=== PATIENT | female | born 1970 | race Caucasian/White ===

== ENCOUNTER 2024-04-16 00:06 | Emergency (ER) | payer OTHER, SELFPAY ==
--- NOTE | ~2024-04-16 | CT_ITS ---
Non-contrast Head CT History: Headache Technique: Axial non-contrast imaging of the brain was performed. Dose reduction technique was used on this scan by utilizing automated exposure control and iterative reconstruction technique. The dose -length product (DLP) was 605.33 mGy-cm. Findings: There is no evidence of intracranial hemorrhage, mass lesion, or acute infarct. Brain par enchyma appears normal. The ventricles and subarachnoid spaces are normal in size. The calvarium ap pears normal. The visualized paranasal sinuses and mastoid air cells are clear. Impression: No significant abnormality seen. Reviewed, dictated and finalized at location . Impression: No significant abnormality seen.
[2024-04-16 00:09] VITALS: BP 162/82; PULSE 85; RESP 20; TEMP 36.4; O2SAT 100
[2024-04-16 02:10] VITALS: BP 144/71; PULSE 87; RESP 20; O2SAT 97
[2024-04-16] MEDS: PROCHLORPERAZINE EDISYLATE 10 MG/2 ML VIAL IV PUSH (02:41)
[2024-04-16] MEDS: SODIUM CHLORIDE 0.9% IV 1,000 ML 999 ML IV CONT (02:41)
[2024-04-16] MEDS: KETOROLAC 15 MG/ML VIAL (*BKC) IV PUSH (02:42)
[2024-04-16] MEDS: diphenhydrAMINE HCl INJ 50 MG/ML VIAL IV PUSH (02:42)
[2024-04-16 02:45] LABS: Basophils Percent Auto 0.3 % (0.2-1.2); Eosinophils Absolute Auto 0.1 K/mm3 (0-0.3); Eosinophils Percent Auto 0.7 % (0-4.4); Hematocrit 42.3 % (37.0-47.0); Hemoglobin 14.4 g/dL (12.0-15.0); Immature Granulocyte Absolute 0.03 K/mm3 (0.00-0.031); Immature Granulocyte Percent A 0.3 % (0-0.5); Lymphocytes Absolute Auto 4.36 K/mm3 (0.9-3.2); Lymphocytes Percent Auto 37.2 % (18.3-44.2); Mean Corpuscular Hemoglobin 30.1 pg (26-34); Mean Corpuscular Volume 88.3 fl (80-100); Mean Platelet Volume 10.1 fl (7.4-10.4); Monocytes Absolute Auto 0.7 K/mm3 (0.1-0.6); Monocytes Percent Auto 6.1 % (2.6-8.5); Neutrophils Absolute Auto 6.5 K/mm3 (1.3-6.7); Neutrophils Percent Auto 55.4 % (45.5-73.1); Platelet Count Result 303 k/mm3 (150-375); Red Blood Count 4.79 M/mm3 (4.2-5.4); Red Cell Distribution Width 14.3 % (11.5-14.5); White Blood Count 11.7 K/mm3 (4.5-10.0)
[2024-04-16 03:10] LABS: Alanine Aminotransferase 18 U/L (6-35); Alkaline Phosphatase 93 U/L (38-126); Anion Gap 8 mmol/L (4-12); Aspartate Amino Transferase 22 U/L (14-36); Bilirubin,Total 0.3 mg/dL (0.2-1.3); Blood Urea Nitrogen 14 mg/dL (7-17); Calcium 8.7 mg/dL (8.4-10.2); Carbon Dioxide 26 mmol/L (22-30); Chloride 104 mmol/L (98-107); Estimated CRCL calculation 75 ml/min; Estimated Glomerular Filt Rate > 60; Glucose 100 mg/dL (65-110); Potassium 3.3 mmol/L (3.4-5.0); Sodium 138 mmol/L (137-145)
[2024-04-16 03:12] LABS: Anisocytosis 1+; Atypical Lymphocytes Present; Ovalocytes 1+; Platelet Estimate Adequate (Adequate); Schistocytes None Seen
--- NOTE | 2024-04-16 03:29 | ED.GENADULT ---
HPI - General Adult General Chief complaint: Headache Stated complaint: headache Time Seen by Provider: 04/16/24 02:11 History of Present Illness HPI narrative: Patient is a 53-year-old female who presents emergency department with chief complaint of left-sided headache and numbness to left side of her face. The patient reports this been ongoing for over a month reports that she has had shingles and reports that his feels similar to the shingles except worse. Patient reports no focal weakness in her arms or legs reports that there has been no acute change reports she has been seen in another emergency department and was told to follow-up with primary care reports he has not been able follow-up with a primary care provider Related Data Allergies Allergy/AdvReac Type Severity Reaction Status Date / Time Penicillins Allergy Mild Unknown Verified 07/10/22 10:24 strawberry Allergy Unknown Unknown Verified 07/10/22 10:24 Review of Systems Review of Systems: A 10 system review of systems was completed on the patient and is negative except for what is stated in the HPI. Nursing and ancillary documentation was reviewed. 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 HEAD: Normocephalic, atraumatic. EYES: PERRLA and EOMI. ENT: Nares clear, no rhinorrhea or epistaxis. Mucous membranes moist. NECK: Supple. CHEST: Clear to auscultation. No respiratory distress. HEART: Regular rate and rhythm. No murmur heard. Normal peripheral pulses. ABDOMEN: Soft, nontender, nondistended, normal active bowel sounds. EXTREMITIES: Normal range of motion. No edema. SKIN: Warm, dry, no rash. NEURO: No focal deficits. Alert and oriented x3. PSYCH: Normal mood and affect. Course Vital Signs Vital signs: Vital Signs Temperature 36.4 C 04/16/24 00:09 Pulse Rate 85 04/16/24 00:09 Respiratory Rate 20 04/16/24 00:09 Blood Pressure 162/82 H 04/16/24 00:09 Pulse Oximetry 100 04/16/24 00:09 Oxygen Delivery Room Air 04/16/24 00:09 Temperature 36.4 C 04/16/24 00:09 Pulse Rate 87 04/16/24 02:10 Respiratory Rate 20 04/16/24 02:10 Blood Pressure 144/71 H 04/16/24 02:10 Pulse Oximetry 97 04/16/24 02:10 Oxygen Delivery Room Air 04/16/24 00:09 Medical Decision Making Vital Signs Vital Signs: Vital Signs Temperature 36.4 C 04/16/24 00:09 Pulse Rate 85 04/16/24 00:09 Respiratory Rate 20 04/16/24 00:09 Blood Pressure 162/82 H 04/16/24 00:09 Pulse Oximetry 100 04/16/24 00:09 Oxygen Delivery Room Air 04/16/24 00:09 Temperature 36.4 C 04/16/24 00:09 Pulse Rate 87 04/16/24 02:10 Respiratory Rate 20 04/16/24 02:10 Blood Pressure 144/71 H 04/16/24 02:10 Pulse Oximetry 97 04/16/24 02:10 Oxygen Delivery Room Air 04/16/24 00:09 Lab Data 04/16/24 02:40 04/16/24 02:40 Labs: Lab Results 04/16/24 Range/Units 02:40 WBC 11.7 H (4.5-10.0) K/mm3 RBC 4.79 (4.2-5.4) M/mm3 Hgb 14.4 (12.0-15.0) g/dL Hct 42.3 (37.0-47.0) % MCV 88.3 (80-100) fl MCH 30.1 (26-34) pg MCHC 34.0 (32-36) g/dl RDW 14.3 (11.5-14.5) % Plt Count 303 (150-375) k/mm
[2024-04-16 03:53] VITALS: BP 152/34; PULSE 68; RESP 19; O2SAT 100
== END 2024-04-16 04:00 | disposition home or self-care (01) ==
PROVIDERS: Emergency Provider Emergency Medicine
DX: R51.9 Headache, unspecified (principal); F17.210 Nicotine dependence, cigarettes, uncomplicated
CPT/HCPCS: 36415; 70450; 80053; 85025; 96361; 96374; 96375; 99284; J0780; J1200; J1885; J7030

== ENCOUNTER 2024-08-20 14:22 | Outpatient (CLI) | payer OTHER, SELFPAY ==
--- NOTE | ~2024-08-20 | MM_ITS ---
EXAMINATION: MM screening [facility] BI w latesha HISTORY: Screening TECHNIQUE: Craniocaudal and mediolateral oblique 3-D tomosynthesis images were obtained and synthetic 2-D images were generated. CAD analysis was submitted and interpreted. COMPARISON: No prior mammogram is available for comparison at this institution. BREAST PARENCHYMAL COMPOSITION: Dense: The breasts are extremely dense, which lowers the sensitivity of mammography. FINDINGS: There is a cluster of indeterminate calcifications in the lower outer quadrant of the right breast, middle third. There is no mammographic evidence for malignancy in the left breast. IMPRESSION: 1. Clustered indeterminate right breast calcifications. 2. Magnification views are recommended. BI-RADS Category 0: Incomplete: Needs additional imaging evaluation. 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
== END 2024-08-20 14:23 | disposition home or self-care (01) ==
LOC: ANHIMG 14:25
PROVIDERS: PCP Emergency Medicine; Visit Provider Emergency Medicine
DX: Z12.31 Encounter for screening mammogram for malignant neoplasm of breast (principal); R92.8 Other abnormal and inconclusive findings on diagnostic imaging of breast
CPT/HCPCS: 77063; 77067

== ENCOUNTER 2024-08-22 07:32 | Emergency (ER) | payer OTHER, SELFPAY ==
[2024-08-22 07:56] VITALS: BP 132/68; PULSE 87; RESP 14; TEMP 36.6; O2SAT 100
--- NOTE | 2024-08-22 09:04 | ED_ITS ---
HPI - General Adult General Chief complaint: Headache Stated complaint: blurry vision, headache Time Seen by Provider: 08/22/24 08:29 History of Present Illness HPI narrative: Patient presenting here with concern that she may have internal shingles. Does not have any lesions currently but feels like she may pop some in a week. Related Data Allergies Allergy/AdvReac Type Severity Reaction Status Date / Time Penicillins Allergy Mild Unknown Verified 07/10/22 10:24 strawberry Allergy Unknown Unknown Verified 07/10/22 10:24 Review of Systems Review of Systems: All systems reviewed & are unremarkable except as noted in HPI and below [facility] Surgical History Surgical History History of Hx of tonsillectomy Family History Family History Mother Bowel cancer Mother Family history of malignant neoplasm Social History Social History Smoking packs per day: 1 Smoking cigarettes per day: 20.0 Smoking status: Current every day smoker Tobacco type: cigarettes Alcohol intake: current Substance use: never Living arrangements: with friend(s) Occupation/Education: occupation 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 EYES: EOMI, conjunctiva normal, PERRL ENT: Hearing grossly intact LUNGS: Nonlabored breathing. HEART: [Regular rate and rhythm] ABD: [Soft], [nontender to palpation] EXT: Normal range of motion SKIN: [No rashes or lesions.] NEURO: [Alert and oriented x 3. No gross focal sensory or strength deficits.] PSYCH: Normal affect Course Vital Signs Vital signs: Vital Signs Temperature 97.8 F 08/22/24 07:56 Pulse Rate 87 08/22/24 07:56 Respiratory Rate 14 08/22/24 07:56 Blood Pressure 132/68 08/22/24 07:56 Pulse Oximetry 100 08/22/24 07:56 Temperature 97.8 F 08/22/24 07:56 Pulse Rate 88 08/22/24 09:41 Respiratory Rate 14 08/22/24 09:41 Blood Pressure 144/86 H 08/22/24 09:41 Pulse Oximetry 98 08/22/24 09:41 Medical Decision Making MDM Narrative Medical decision making narrative: Patient presenting with concern that she may be starting to develop internal shingles i.e. that she may be starting to have the beginnings of a shingles outbreak/flare. Has no lesions currently, normal neurologic exam here. Will give prescription for prednisone and antiviral medications as that works for her flares and have her follow-up with her PCP. Patient agreeable to this plan. Vital Signs Vital Signs: Vital Signs Temperature 97.8 F 08/22/24 07:56 Pulse Rate 87 08/22/24 07:56 Respiratory Rate 14 08/22/24 07:56 Blood Pressure 132/68 08/22/24 07:56 Pulse Oximetry 100 08/22/24 07:56 Temperature 97.8 F 08/22/24 07:56 Pulse Rate 88 08/22/24 09:41 Respiratory Rate 14 08/22/24 09:41 Blood Pressure 144/86 H 08/22/24 09:41 Pulse Oximetry 98 08/22/24 09:41 Discharge Plan Discharge Clinical Impression: Trigeminal neuralgia Patient Disposition: Home, Self-Care Condition: Stable Instructions: Trigeminal Neuralgia (ED) Additional Instructions: Please follow up with your doctor and neurologist; you can always return for any further issues. Patient Language: [place] Prescriptions: New valacyclovir [Valtrex] 1 gram tablet 1,000 mg PO Q8H 10 Days Qty: 30 0RF prednisone 20 mg tablet 40 mg PO DAILY 5 Days Qty: 10 0RF No Action albuterol sulfate [Ventolin HFA] 90 mcg/actuation HFA aerosol inhaler 1 puff inhalation Q4H PRN (Reason: shortness of breath or wheezing) Qty: 8.5 0RF nicotine 21 mg/24 hr patch 24 hour 1 patch transdermal DAILY Qty: 45 0RF methylprednisolone [Medrol (Tomas)] 4 mg tablets,dose pack See Rx Instructions PO PER PKG DIR Qty: 21 0RF Rx Instructions: PO PER PKG DIR Follow-up/Referrals: Michoacano Su MD [Physician] - 2 Days Narendra James MD [Primary Care Provider] -
[2024-08-22 09:41] VITALS: BP 144/86; PULSE 88; RESP 14; O2SAT 98
== END 2024-08-22 09:42 | disposition home or self-care (01) ==
LOC: ANHED 09:02
PROVIDERS: Emergency Provider Emergency Medicine; PCP Emergency Medicine
DX: G50.0 Trigeminal neuralgia (principal)
CPT/HCPCS: 96372; 99283

== ENCOUNTER 2024-09-08 12:41 | Outpatient (CLI) | payer OTHER, SELFPAY ==
--- NOTE | ~2024-09-08 | MM_ITS ---
EXAMINATION: MM diagnostic [facility] RT w latesha HISTORY: Right breast calcifications TECHNIQUE: Additional spot magnification images of the right breast were performed and synthetic 2-D images were generated. CAD analysis was submitted and interpreted. COMPARISON: 08/20/2024 BREAST PARENCHYMAL COMPOSITION:Dense: The breasts are extremely dense, which lowers the sensitivity o f mammography. FINDINGS: Spot magnification views demonstrate a group of amorphous and somewhat speckled microcalcif ications at the outer, central aspect. These are probably benign. No associated mass lesion or distor tion seen. IMPRESSION: Probably benign amorphous and speckled grouped microcalcifications, as above. Six-month follow-up [facility] mography recommended to reassess. BI-RADS category 3, probably benign findings. 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 S ix-month follow-up mammography recommended to reassess. BI-RADS category 3, probably benign findings.
== END 2024-09-08 12:42 | disposition home or self-care (01) ==
LOC: ANHIMG 12:42
PROVIDERS: PCP Emergency Medicine; Visit Provider Emergency Medicine
DX: R92.8 Other abnormal and inconclusive findings on diagnostic imaging of breast (principal)
CPT/HCPCS: 77061; 77065; G0279

== ENCOUNTER 2024-11-18 07:20 | Emergency (ER) | payer OTHER, SELFPAY ==
[2024-11-18 07:25] VITALS: BP 134/67; PULSE 86; RESP 16; TEMP 36.5; O2SAT 100
--- NOTE | 2024-11-18 07:25 | ED_ITS ---
HPI - General Adult General Chief complaint: Unspecified Stated complaint: Facial pain Time Seen by Provider: 11/18/24 07:24 History of Present Illness HPI narrative: This is a 54-year-old female with history trigeminal neuralgia, shingles, chronic fatigue presenting for facial pain. She has been having sharp facial pain that is worse with light touch with face in the V2 distribution for at least 3 months. She is working neurologist and neurosurgeons to figure out cause for symptoms. She recently had an MRI of her brain that was consistent with trigeminal neuralgia. She has stopped taking her oxcarbamazepine but she says it was strong enough. She is not taking anything else for pain. The patient believes her symptoms are due to shingles and is requesting a course of anti-virals. Patient denies pain in the tip of her nose. She denies pain in her eye or with extraocular eye movements. Patient says her vision is occasionally blurry but that has been on- going 3 months. No difficulty swallowing, double vision dysarthria, loss of coordination or weakness to any extremity. Other symptoms include general fatigue and not feeling well which has been on/off for years. Related Data Allergies Allergy/AdvReac Type Severity Reaction Status Date / Time Penicillins Allergy Mild Unknown Verified 11/18/24 07:42 strawberry Allergy Unknown Unknown Verified 11/18/24 07:42 [facility] Surgical History Surgical History History of Hx of tonsillectomy Family History Family History Mother Bowel cancer Mother Family history of malignant neoplasm Social History Social History Smoking packs per day: 1 Smoking cigarettes per day: 20.0 Smoking status: Current every day smoker Tobacco type: cigarettes Alcohol intake: current Substance use: never Living arrangements: with friend(s) Occupation/Education: occupation 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 Head: atraumatic. No vesicular rashes on the TM EYES: EOMI, fluorescein stain showed no ulcerations or abrasions, NOSE: Atraumatic, no pain in the to the nose NECK: Trachea midline RESPIRATORY: No increased rate of breathing CARDIOVASCULAR: RRR, ABDOMINAL: Non-distended MUSCULOSKELETAl: No obvious deformities NEURO: Alert. Moving 4/4 extremities SKIN:: No vesicular rashes PSYCHIATRIC: Normal affect Medical Decision Making MDM Narrative Medical decision making narrative: -Course: 54-year-old female presenting with facial pain. She attributes his shingles although it is more consistent with trigeminal neuralgia. She has recently had an MRI that is consistent with trigeminal neuralgia. She has stopped taking her oxcarbazepine saying it doesn work. Physical exam here is unremarkable w/ no ocular ulcerations/Mukherjee sign. Symptoms appear to be ch ronic in nature. The goal of her visit is to obtain a course of antivirals which I do not think will help her but will be provided. Patient states that she has all of the pain medications at home. Patient be discharged follow-up primary care physician and neurologist for further management. -DDX includes but is not limited to: Trigeminal neuralgia, disseminated shingles, chronic fatigue syndrome, CVA, fibromyalgia, depression Discharge Plan Discharge Clinical Impression: Left-sided trigeminal neuralgia, Nonadherence to medication Patient Disposition: Home, Self-Care Condition: Stable Instructions: Antibiotic Form, Trigeminal Neuralgia (ED) Additional Instructions: You were seen in the emergency department for facial pain. I believe this is due to your trigeminal neuralgia. Your requested anti virals which will be provided although I am not sure if this will help your condition. You should resume your oxcarbazepine. It is important that you follow-up with your neurologist and primary care physician for further management. Please return to ED if you develop any new or worsening symptoms. Patient Language: Czech Prescriptions: New valacyclovir 1 gram tablet 1,000 mg PO Q8H Qty: 21 0RF No Action albuterol sulfate [Ventolin HFA] 90 mcg/actuation HFA aerosol inhaler 1 puff inhalation Q4H PRN (Reason: shortness of breath or wheezing) Qty: 8.5 0RF nicotine 21 mg/24 hr patch 24 hour 1 patch transdermal DAILY Qty: 45 0RF valacyclovir [Valtrex] 1 gram tablet 1,000 mg PO Q8H 10 Days Qty: 30 0RF prednisone 20 mg tablet 40 mg PO DAILY 5 Days Qty: 10 0RF methylprednisolone [Medrol (Tomas)] 4 mg tablets,dose pack See Rx Instructions PO PER PKG DIR Qty: 21 0RF Rx Instructions: PO PER PKG DIR Follow-up/Referrals: Narendra James MD [Primary Care Provider] - 1 Week (Trigeminal neuralgia )
--- OUTSIDE RECORDS SUMMARY | 2024-11-18 07:39 | XMS_ITS | Clinical Summary ---
Author Organization [facility] Debbie espinoza [facility] Address [address] [place] [address] Care Team Providers Care Shingle Inspector Name Role Phone Unavailable Primary Care Provider Unavailabl e Social History Tobacco Use Types Packs/Day Years Used Date Smoking Tobacco: Never Assessed Comments Unknown Sex and Gender Information Value Date Recorded Sex Assigned at Not on file Legal Sex Female 2:48 PM AUT[employer] Gender Identity Not on file Sexual Orientation Not on file Plan of Treatment Upcoming Encounters Date Type Department Care Team (Late st Contact Info) Description 12/02/2024 1:30 PM CDT Office Visit [facility] Oncology and Hematology - [address] [facility] [address] [place] [address] Wild Dey MD [address] [facility] [place] [address] Health Maintenance Due Date Last Done Comments DTAP/TDAP/TD VACCINES (1 - Tdap) 1989 HEPATITIS B VACCINES (1 of 3 - 19+ 3-dose series) 04/1989 CERVICAL CANCER SCREENING 2000 BREAST CANCER SCREENING 2010 COLORECTAL SCREENING 2015 Colorectal Cancer Screening 2015 FIT-DNA Q 3 years 2015 FIT/FOBT Q 1 year 2015 Flex Sig/CT Colonography Q 5 years 2015 ZOSTER VACCINE (1 of 2) 2020 INFLUENZA VACCINE (#1) 2024 Insurance MEDICAID [place]
--- OUTSIDE RECORDS SUMMARY | 2024-11-18 07:39 | XMS_ITS | Clinical Summary ---
Author Organization [facility] Address [address] [place] [id number] Care Team Providers Care Automobile Travel Club Counselor Name Role Phone None, Provider MD Primary Care Provider Unavaila ble Allergies Active Allergy Reactions Criticality Noted Date Comments Penicillins Unknown 11/28/2021 From childhood Strawberries Swelling 11/28/2021 Medications medroxyPROGESTE Lance (DEPO-PROVERA) 150 MG/ML injection ADMINISTER 1 ML IN THE MUSCLE EVERY 3 MONTHS 2 Active Social History Tobacco Use Types Packs/Day Years Used Date Smoking Tobacco: Every Day Cigarettes Smokeless Tobacco: Never Alcohol Use Standard Drinks/Week Comments Not Currently 0 (1 standard drink = 0.6 oz pur e alcohol) Comments Unknown Sex and Gender Information Value Date Recorded Sex Assigned at Not on file Legal Sex Female 1:40 AM CDT Gender Identity Not on file Sexual Orientation Not on file Last Filed Vital Signs Vital Sign Reading Time Taken Comments Blood Pressure 160/99 03/09/2024 12:27 AM CDT Pulse 81 03/09/2024 12:27 AM CDT Temperature 36.7 C (98.1 F) 03/09/2024 12:27 AM CDT Respiratory Rate 20 03/09/2024 12:27 AM CDT Oxygen Saturation 100% 03/09/2024 12:27 AM CDT Inhaled Oxygen Concentration - - Weight 56.7 kg (125 lb) 03/09/2024 12:27 AM CDT Height 167.6 cm (5' 6 ) 03/09/2024 12:27 AM CDT Body Mass Index 20.18 03/09/2024 12:27 AM CDT Plan of Treatment Health Maintenance Due Date Last Done Comments Cervical Cancer Screening Pa p Smear (Age 30 to 64) Every 3 Years 1970 Colorectal Cancer Screening Colonoscopy (10 Years) 1970 Annual Physical 1973 Pneumococcal Vaccine: Pediatrics (0 to 5 Years) and At-Risk Patients (6 to 64 Years) (1 of 2 - PCV) 1976 Hepatitis C 1988 DTaP, Tdap and Td Vaccines ( 1 - Tdap) 1989 Hepatitis B Vaccines (1 of 3 - 19+ 3-dose series) 1989 Cervical Cancer Screening Pa p with HPV Testing (Age 30 to 64) Every 5 Years 2000 Cervical Cancer Screening wi th HPV 2000 Mammogram Screening 2010 Zoster Vaccines (1 of 2) 2020 COVID-19 Vaccine (3 - 2023-2 5 season) 2024 12/04/2020, 11/11/2020 Influenza Adult (#1) 2024 Meningococcal B Vaccine Aged Out No l onger eligible based on patient's age to complete this topic Meningococcal Vaccine Aged Out No kumar raul eligible based on patient's age to complete this topic RSV Immunizations Under 20 Months Aged Out No longer eligible b ased on patient's age to complete this topic Insurance Care Teams Automobile Travel Club Counselor Relationship Specialty Start Date End Date None, Provider, PCP - General UNKNOWN PHYSICIAN SPECIALTY 06/24/22
--- OUTSIDE RECORDS SUMMARY | 2024-11-18 07:40 | XMS_ITS | Clinical Summary ---
Author Organization [facility] Address [address] [place] [address] Care Team Providers Care Meat Stuffer Name Role Phone Unknown, Provider Primary Care Provider Unavaila ble Source Comments [facility],non-owned Affiliates and Associated Physician Practices is amultiple site organization consisting of ambulatory clinics and hospital sitesin [place], [place], [place] and [place]. This disclosure is being madepursuant to the Care Everywhere program and may not contain all information available regarding this patient. Last updated 18.[facility] Allergies Active Allergy Reactions Criticality Noted Date Comments Penicillins Unknown 11/28/2021 From childhood Penicillium Notatum Anaphylaxis,Shortnes s of Breath,Swelling High 05/26/2024 [place] Swelling 11/28/2021 Medications * Be aware that medications may not be up to date on this document. Alwaysverify current medications with the patient. Medication Sig Dispensed Refills Start Date End Date Status valACYclovir (Valtrex) 1 GM tablet Take 1 (one) tablet by mouth once 08/22/2024 Active predniSONE (Deltasone) 20 MG tablet Take 2 (two) tablets by mouth once daily 08/22/2024 Active doxycycline hyclate (Vibramycin) 100 MG capsule Take 1 (one) capsule by mouth once daily 09/02/2024 Active verapamil (Isoptin) 40 MG tabletIndications:Ch ronic facial pain,Trigeminal neuralgia,Other complicated headache syndrome Take 1 (one) tablet by mouth 3 times daily 270 tablet 4 10/08/2024 Active butalbital-acetamino phen-caffeine (Fioricet) 50-300-40 MG capsuleIndications:O ther complicated headache syndrome Take 1 (one) capsule by mouth every 4 hours as needed for Headache 30 capsule 5 10/08/2024 Active OXcarbazepine (Trileptal) 150 MG tabletIndications:Tr igeminal neuralgia Take 1 (one) tablet by mouth 2 times daily 180 tablet 4 10/08/2024 Active Active Problems No known active problems Encounters Date Type Department Care Team Description 11/02/2024 4:01 PM THEOLOGY TEACHER - 11/02/2024 11:59 PM THEOLOGY TEACHER Hospital Encounter [facility] MRI [address] [place] [address] Joseph Correa APRN-CNP Discharge Disposition: Home or Self Care 11/02/2024 Travel 10/08/2024 9:00 AM THEOLOGY TEACHER Office Visit [facility] - Neurology [address] [place] [address] Joseph Correa APRN-CNP Trigeminal neuralgia (Primary Dx); Chronic facial pain; Vertigo; Postural imbalance; Other complicated headache syndrome; Pre-op evaluation 10/08/2024 Travel 09/11/2024 2:15 PM THEOLOGY TEACHER Office Visit [facility] - Otolaryngology [address] [place] [address] Jarred Givens MD Chronic facial pain (Primary Dx) 09/11/2024 Travel 09/09/2024 Travel from Last 3 Months Social History Tobacco Use Types Packs/Day Years Used Date Smoking Tobacco: Every Day Cigarettes Smokeless Tobacco: Never Tobacco Cessation:Ready to Q uit: Not Asked; Counseling Given: Not Answered Alcohol Use Standard Drinks/Week Comments Never 0 (1 standard drink = 0.6 oz pur e alcohol) Sex and Gender Information Value Date Recorded Sex Assigned at Not on file Gender Identity Not on file Sexual Orientation Not on file Last Filed Vital Signs Vital Sign Reading Time Taken Comments Blood Pressure 129/77 10/08/2024 8:46 AM THEOLOGY TEACHER Pulse 96 10/08/2024 8:46 AM THEOLOGY TEACHER Temperature - - Respiratory Rate - - Oxygen Saturation 97% 09/11/2024 3:07 PM THEOLOGY TEACHER Inhaled Oxygen Concentration - - Weight 62.1 kg (137 lb) 10/08/2024 8:46 AM THEOLOGY TEACHER Height 167.6 cm (5' 6 ) 09/11/2024 3:07 PM THEOLOGY TEACHER Body Mass Index 22.11 09/11/2024 3:07 PM THEOLOGY TEACHER Plan of Treatment Upcoming Encounters Date Type Department Care Team (Late st Contact Info) Description 01/05/2025 2:30 PM CDT Office Visit [facility] - Neurology [address] [place] [phone] Joseph Correa, CLINICAL REVIEW NURSE-SOUND TECHNICIAN SUPERVISOR [address] [place] [phone] Health Maintenance Due Date Last Done Comments COLOGUARD (AGES 45-75) - COL ON CA SCREENING 1970 COLON MONITORING 1970 COLONOSCOPY - COLON CA SCREENING 1970 CT COLONOGRAPHY - COLON CA SCREENING 1970 Colorectal Cancer Screening 1970 FIT - COLON CA SCREENING 1970 FLEX SIG - COLON CA SCREENING 1970 LIPID TESTING 1970 MAMMOGRAM 1970 PAP SMEAR 1970 HIV SCREENING 1985 HEPATITIS C SCREENING 07/13/1988 DTAP/TDAP/TD VACCINES (1 - Tdap) 1989 HEPATITIS B VACCINE (1 of 3 - 19+ 3-dose series) 1989 PNEUMOCOCCAL VACCINE 50+ (1 of 2 - PCV) 1989 ZOSTER VACCINE (1 of 2) 2020 COVID-19 VACCINE (1 - 2023-2 5 season) 2024 INFLUENZA VACCINE (#1) 2024 DEPRESSION SCREENING 09/10/2024 HIB VACCINE Aged Out No longer eligi ble based on patient's age to complete this topic HPV VACCINE Aged Out No longer eligi ble based on patient's age to complete this topic MENINGOCOCCAL (Group B) VACCINE Aged Out No longer eligible based on patient's age to complete this topic MENINGOCOCCAL VACCINE Aged Out No kumar raul eligible based on patient's age to complete this topic Procedures Procedure Name Priority Date/Time Associated Diagnosis Comments MRI BRAIN WWO CONTRAST Routine 11/02/2024 5:36 PM THEOLOGY TEACHER Chronic facial pain Trigeminal neuralgia Vertigo Postural imbalance Other complicated headache syndrome Pre-op evaluation from Last 3 Months Results * MRI Brain Wwo Contrast (11/02/2024 5:36 PM THEOLOGY TEACHER) Anatomical Region Laterality Modality Head Magnetic Resonan ce 11/02/2024 9:15 PM THEOLOGY TEACHER Impressions 11/04/2024 9:52 AM THEOLOGY TEACHER IMPRESSION: 1.There is a small vessel coursing along the dorsal aspect of the root exit zone of the left trigeminal nerve, (series 14, image 33). 2.Otherwise, no mass or abnormal enhancement along the course of the fifth, seventh, and 8th cranial nerves bilaterally. 3.Subtle low-lying cerebellar tonsils. If there is clinical concern, fundus examination could be obtained for further evaluation. > Interpreting Provider: Kymberly Daniel MD on 11/04/2024 9:52 AM Narrative 11/04/2024 9:52 AM THEOLOGY TEACHER PROCEDURE: MRI BRAIN WWO CONTRAST, DATE/TIME OF EXAM: 11/02/2024 5:38 PM, LOCATION [facility] INDICATION: R51.9: Chronic facial pain G89.29: Chronic facial pain G50.0: Trigeminal neuralgia R42: Vertigo R29.3: Postural imbalance G44.59: Other complicated headache syndrome Z01.818: Pre-op evaluation ADDITIONAL CLINICAL INFORMATION: Ordering Provider Reason For Exam: Severe trigeminal neuralgia; pre op eval for Microvascular decompression Technologist Note: MRI Brain with fiesta sequence- Pre op eval Thanks Additional: 54 year old female with history of Atypical facial pain. Sinus infection, seen ENT, received steroids nothing helping in resolving symptoms. Patient has Neuropathic pain of face followed by Shingles; left facial pain; burning sensation (Since 4 years). Patient has history of Significant headaches and Seizures she reports Seizures under control and had it when she was child. CONTRAST: GADOBUTROL 1 MMOL/ML IV SSM SO:6 mL EXAMINATION: Magnetic resonance imaging (MRI) of the brain without and with contrast TECHNIQUE: MRI of the brain was performed prior to and following the uneventful administration of 6 mL intravenous GADAVIST contrast according to a dedicated internal auditory canal (IAC) protocol. This included detailed coronal and axial imaging through the intracranial course of cranial nerves five through eight. COMPARISON: No prior study is available for comparison at the time of this dictation. FINDINGS: There is a small vessel coursing along the dorsal aspect of the root exit zone of the left trigeminal nerve, (series 14, image 33). Otherwise, the cerebellopontine angles and internal auditory canals appear normal. No enhancing lesions are identified along the course of the cranial nerve 7/8 complexes. The signal within the bony labyrinth appears normal on both sides. The mastoids appear clear. Susceptibility artifacts in the basal ganglia, the dentate nuclei, and to a lesser extent the red nuclei, is a nonspecific finding likely represent physiologic mineralization. No evidence of acute cerebral infarction is seen. There is subjective mild cerebral volume loss with associated ex vacuo ventricular dilatation. No mass effect or midline shift is seen. Minimal periventricular white matter FLAIR hyperintensity is a nonspecific finding. No enhancing lesions are identified. There could be subtle low-lying cerebellar tonsils reaching down to the level of the foramen magnum. The posterior fossa, brainstem, and craniocervical junction appear otherwise grossly unremarkable.. The tortuous left vertebral artery results in slight deformity of the anterior left aspect of the alec. The left optic nerve sheath measures up to 5.5 mm, likely within normal limits. The visualized portions of the orbits appear grossly unremarkable. There is moderate mucosal thickening in the left maxillary sinus. Reduced pneumatization of the sphenoid sinus. There is opacification of the dependent and posterior right mastoid air cells. Suspected trace fluid signal in the right mastoid air cells. The remaining mastoid air cells appear grossly clear. Normal flow voids are demonstrated in the carotid arteries and basilar artery. Procedure Note Kymberly Daniel MD - 11/04/2024 PROCEDURE: MRI BRAIN WWO CONTRAST, DATE/TIME OF EXAM: 11/02/2024 5:38PM, LOCATION [facility] INDICATION: R51.9: Chronic facial pain G89.29: Chronic facial pain G50.0: Trigeminal neuralgia R42: Vertigo R29.3: Postural imbalance G44.59: Other complicated headache syndrome Z01.818: Pre-op evaluation ADDITIONAL CLINICAL INFORMATION: Ordering Provider Reason For Exam: Severe trigeminal neuralgia; pre op eval for Microvascular decompression Technologist Note: MRI Brain with fiesta sequence- Pre op eval Thanks Additional: 54 year old female with history of Atypical facial pain. Sinus infection, seen ENT, received steroids nothing helping inresolving symptoms. Patient has Neuropathic pain of face followed by Shingles;left facial pain; burning sensation (Since 4 years). Patient has history of Significant headaches and Seizures she reports Seizures under controland had it when she was child. CONTRAST: GADOBUTROL 1 MMOL/ML IV SSM SO:6 mL EXAMINATION: Magnetic resonance imaging (MRI) of the brain without andwith contrast TECHNIQUE: MRI of the brain was performed prior to and following the uneventful administration of 6 mL intravenous GADAVIST contrastaccording to a dedicated internal auditory canal (IAC) protocol. This included detailed coronal and axial imaging through the intracranial course of cranial nerves five through eight. COMPARISON: No prior study is available for comparison at the time ofthis dictation. FINDINGS: There is a small vessel coursing along the dorsal aspect of the rootexit zone of the left trigeminal nerve, (series 14, image 33). Otherwise, the cerebellopontine angles and internal auditory canals appear normal. No enhancing lesions are identified along the course of the cranial nerve7/8 complexes. The signal within the bony labyrinth appears normal on both sides. The mastoids appear clear. Susceptibility artifacts in the basal ganglia, the dentate nuclei, and toa lesser extent the red nuclei, is a nonspecific finding likely represent physiologic mineralization. No evidence of acute cerebral infarction is seen. There is subjective mild cerebral volume loss with associated ex vacuo ventricular dilatation. No mass effect or midline shift is seen. Minimal periventricular white matter FLAIR hyperintensity is anonspecific finding. No enhancing lesions are identified. There could be subtle low-lying cerebellar tonsils reaching down to the level of the foramen magnum. The posterior fossa, brainstem, and craniocervical junctionappear otherwise grossly unremarkable.. The tortuous left vertebral arteryresults in slight deformity of the anterior left aspect of the alec. The left optic nerve sheath measures up to 5.5 mm, likely within normal limits. The visualized portions of the orbits appear grosslyunremarkable. There is moderate mucosal thickening in the left maxillary sinus.Reduced pneumatization of the sphenoid sinus. There is opacification of the dependent and posterior right mastoid air cells. Suspected trace fluid signal in the right mastoid air cells. The remaining mastoid air cells appear grossly clear. Normal flow voids are demonstrated in the carotid arteries and basilar artery. IMPRESSION: 1.There is a small vessel coursing along the dorsal aspect of the rootexit zone of the left trigeminal nerve, (series 14, image 33). 2.Otherwise, no mass or abnormal enhancement along the course of thefifth, seventh, and 8th cranial nerves bilaterally. 3.Subtle low-lying cerebellar tonsils. If there is clinical concern,fundus examination could be obtained for further evaluation. > Interpreting Provider: Kymberly Daniel MD on 11/04/2024 9:52 AM Joseph Correa CLINICAL REVIEW NURSE-SOUND TECHNICIAN SUPERVISOR MR ORDERABLES from Last 3 Months Care Teams Meat Stuffer Relationship Specialty Start Date End Date Unknown, Provider PCP - General 10/28/24
--- OUTSIDE RECORDS SUMMARY | 2024-11-18 07:40 | XMS_ITS | Patient Health Summary ---
Author Organization [facility] Address [address] [place] [address] Care Team Providers Care Photography Assistant Name Role Phone Unknown, Provider Primary Care Provider Unavaila ble Note from [facility],non-owned Affiliates and Associated Physician Practices is amultiple site organization consisting of ambulatory clinics and hospital sitesin [place], [place], [place] and [place]. This disclosure is being madepursuant to the Care Everywhere program and may not contain all information available regarding this patient. Last updated 18.[facility] Allergies * Penicillins(Unknown) * Penicillium Notatum(Anaphylaxis,Shortness of Breath,Swelling) -High Criticality * [place](Swelling) Medications * Be aware that medications may not be up to date on this document. Alwaysverify current medications with the patient. * valACYclovir (Valtrex) 1 GM tablet(Started 08/22/2024) Take 1 (one) tablet by mouth once * predniSONE (Deltasone) 20 MG tablet(Started 08/22/2024) Take 2 (two) tablets by mouth once daily * doxycycline hyclate (Vibramycin) 100 MG capsule(Started 09/02/2024) Take 1 (one) capsule by mouth once daily * verapamil (Isoptin) 40 MG tablet(Started 10/08/2024) Take 1 (one) tablet by mouth 3 times daily 4 refills by 10/08/2025 * ocyovcfezo-nifbjgzwtdpmw-hzgdhiku (Fioricet) 50-300-40 MG capsule(Started 10/08/2024) Take 1 (one) capsule by mouth every 4 hours as needed for Headache 5 refills by 04/06/2025 * OXcarbazepine (Trileptal) 150 MG tablet(Started 10/08/2024) Take 1 (one) tablet by mouth 2 times daily 4 refills by 10/08/2025 Active Problems No known active problems Social History Tobacco Use Types Packs/Day Years [...] Comments Blood Pressure 129/77 10/08/2024 8:46 AM GAS FLOW REGULATOR Pulse 96 10/08/2024 8:46 AM GAS FLOW REGULATOR Temperature - - Respiratory Rate - - Oxygen Saturation 97% 09/11/2024 3:07 PM GAS FLOW REGULATOR Inhaled Oxygen Concentration - - Weight 62.1 kg (137 lb) 10/08/2024 8:46 AM GAS FLOW REGULATOR Height 167.6 cm (5' 6 ) 09/11/2024 3:07 PM GAS FLOW REGULATOR Body Mass Index 22.11 09/11/2024 3:07 PM GAS FLOW REGULATOR Procedures * MRI BRAIN WWO CONTRAST(Performed 11/02/2024) Performed for Chronic facial pain, Trigeminal neuralgia, Vertigo, Postural imbalance, Other complicated headache syndrome, Pre-op evaluation Results * MRI Brain Wwo Contrast (11/02/2024 5:36 PM GAS FLOW REGULATOR) Anatomical Region Laterality Modality Head Magnetic Resonan ce 11/02/2024 9:15 PM GAS FLOW REGULATOR Impressions 11/04/2024 9:52 AM GAS FLOW REGULATOR IMPRESSION: 1.There is a small vessel coursing [...] 11/04/2024 9:52 AM Narrative 11/04/2024 9:52 AM GAS FLOW REGULATOR PROCEDURE: MRI BRAIN WWO CONTRAST, DATE/TIME OF EXAM: 11/02/2024 5:38 PM, LOCATION [facility] INDICATION: R51.9: Chronic facial pain G89.29: Chronic [...] CONTRAST, DATE/TIME OF EXAM: 11/02/2024 5:38PM, LOCATION [facility] INDICATION: R51.9: Chronic facial pain G89.29: Chronic [...] Kymberly Daniel MD on 11/04/2024 9:52 AM Teodorokanchanpavithra Jaramillojose VICE PRESIDENT OF ACADEMIC AFFAIRS-COLLECTIONS CLERK MR ORDERABLES Care Teams Photography Assistant Relationship Specialty Start Date End Date Unknown, Provider PCP - General 10/28/24
--- OUTSIDE RECORDS SUMMARY | 2024-11-18 07:40 | XMS_ITS | Referral Summary ---
Author Organization [facility] Address [address] [place] [address] Care Team Providers Care Cement Tile Maker Name Role Phone Unknown, Provider Primary Care Provider Unavaila ble Source Comments [facility],non-owned Affiliates and Associated Physician Practices is amultiple site organization consisting of ambulatory clinics and hospital sitesin [place], [place], [place] and [place]. This disclosure is being madepursuant to the Care Everywhere program and may not contain all information available regarding this patient. Last updated 18.[facility] Encounters Date Type Department Care Team Description 11/02/2024 Travel 11/02/2024 4:01 PM PRODUCT MANAGEMENT INTERN - 11/02/2024 11:59 PM PRODUCT MANAGEMENT INTERN Hospital Encounter [facility] MRI [address] [place] [address] Joseph Correa APRN-CNP Discharge Disposition: Home or Self Care 10/08/2024 Travel 10/08/2024 9:00 AM PRODUCT MANAGEMENT INTERN Office Visit [facility] - Neurology [address] [place] [address] Joseph Correa APRN-CNP Trigeminal neuralgia (Primary Dx); Chronic facial pain; Vertigo; Postural imbalance; Other complicated headache syndrome; Pre-op evaluation 09/11/2024 Travel 09/11/2024 2:15 PM PRODUCT MANAGEMENT INTERN Office Visit [facility] - Otolaryngology [address] [place] [phone] Jarred Givens MD Chronic facial pain (Primary Dx) 09/09/2024 Travel from Last 3 Months Allergies Active Allergy Reactions Criticality Noted Date Comments Penicillins Unknown 11/28/2021 From childhood Penicillium Notatum Anaphylaxis,Shortnes s of Breath,Swelling High 05/26/2024 [place] Swelling 11/28/2021 Medications * Be aware that [...] Active Active Problems No known active problems Social [...] Comments Blood Pressure 129/77 10/08/2024 8:46 AM PRODUCT MANAGEMENT INTERN Pulse 96 10/08/2024 8:46 AM PRODUCT MANAGEMENT INTERN Temperature - - Respiratory Rate - - Oxygen Saturation 97% 09/11/2024 3:07 PM PRODUCT MANAGEMENT INTERN Inhaled Oxygen Concentration - - Weight 62.1 kg (137 lb) 10/08/2024 8:46 AM PRODUCT MANAGEMENT INTERN Height 167.6 cm (5' 6 ) 09/11/2024 3:07 PM PRODUCT MANAGEMENT INTERN Body Mass Index 22.11 09/11/2024 3:07 PM PRODUCT MANAGEMENT INTERN Plan of Treatment Upcoming Encounters Date Type Department Care Team (Late st Contact Info) Description 01/05/2025 2:30 PM CDT Office Visit [facility] - Neurology [address] [place] [phone] Joseph Correa, PARA MACHINE OPERATOR-MECHANICAL PROJECT MANAGER [address] [place] [phone] Procedures Procedure Name Priority Date/Time Associated Diagnosis Comments MRI BRAIN WWO CONTRAST Routine 11/02/2024 5:36 PM PRODUCT MANAGEMENT INTERN Chronic facial pain Trigeminal neuralgia Vertigo Postural imbalance Other complicated headache syndrome Pre-op evaluation from Last 3 Months Results * MRI Brain Wwo Contrast (11/02/2024 5:36 PM PRODUCT MANAGEMENT INTERN) Anatomical Region Laterality Modality Head Magnetic Resonan ce 11/02/2024 9:15 PM PRODUCT MANAGEMENT INTERN Impressions 11/04/2024 9:52 AM PRODUCT MANAGEMENT INTERN IMPRESSION: 1.There is a small vessel coursing [...] 11/04/2024 9:52 AM Narrative 11/04/2024 9:52 AM PRODUCT MANAGEMENT INTERN PROCEDURE: MRI BRAIN WWO CONTRAST, DATE/TIME OF EXAM: 11/02/2024 5:38 PM, LOCATION [facility] INDICATION: R51.9: Chronic facial pain G89.29: Chronic [...] CONTRAST, DATE/TIME OF EXAM: 11/02/2024 5:38PM, LOCATION [facility] INDICATION: R51.9: Chronic facial pain G89.29: Chronic [...] MD on 11/04/2024 9:52 AM Joseph Correa PARA MACHINE OPERATOR-MECHANICAL PROJECT MANAGER MR ORDERABLES from Last 3 Months Care Teams Cement Tile Maker Relationship Specialty Start Date End Date Unknown, Provider PCP - General 10/28/24
== END 2024-11-18 09:08 | disposition home or self-care (01) ==
PROVIDERS: Emergency Provider Emergency Medicine; PCP Emergency Medicine
DX: G50.0 Trigeminal neuralgia (principal); F17.210 Nicotine dependence, cigarettes, uncomplicated; Z91.148 Patient's other noncompliance with medication regimen for other reason
CPT/HCPCS: 99283

== ENCOUNTER 2024-12-02 14:19 | Outpatient (CLI) | payer OTHER, SELFPAY ==
[2024-12-02 14:41] LABS: Basophils Percent Auto 0.3 % (0.2-1.2); Eosinophils Absolute Auto 0.1 K/mm3 (0-0.3); Eosinophils Percent Auto 0.6 % (0-4.4); Hematocrit 44.5 % (37.0-47.0); Hemoglobin 15.1 g/dL (12.0-15.0); Immature Granulocyte Absolute 0.03 K/mm3 (0.00-0.031); Immature Granulocyte Percent A 0.3 % (0-0.5); Lymphocytes Absolute Auto 3.53 K/mm3 (0.9-3.2); Lymphocytes Percent Auto 36.2 % (18.3-44.2); Mean Corpuscular HGB Conc 33.9 g/dl (32-36); Mean Corpuscular Hemoglobin 29.3 pg (26-34); Mean Corpuscular Volume 86.4 fl (80-100); Mean Platelet Volume 9.8 fl (7.4-10.4); Monocytes Absolute Auto 0.8 K/mm3 (0.1-0.6); Monocytes Percent Auto 7.9 % (2.6-8.5); Neutrophils Absolute Auto 5.3 K/mm3 (1.3-6.7); Neutrophils Percent Auto 54.7 % (45.5-73.1); Platelet Count Result 359 k/mm3 (150-375); Red Blood Count 5.15 M/mm3 (4.2-5.4); Red Cell Distribution Width 14.8 % (11.5-14.5); White Blood Count 9.8 K/mm3 (4.5-10.0)
[2024-12-02 16:31] LABS: Alanine Aminotransferase 22 U/L (6-35); Albumin Level 4.1 g/dL (3.5-5.1); Alkaline Phosphatase 86 U/L (38-126); Anion Gap 10 mmol/L (4-12); Aspartate Amino Transferase 20 U/L (14-36); Bilirubin,Total 0.2 mg/dL (0.2-1.3); Blood Urea Nitrogen 12 mg/dL (7-17); CRP 1.3 mg/dL (<1.0); Calcium 9.4 mg/dL (8.4-10.2); Carbon Dioxide 22 mmol/L (22-30); Chloride 106 mmol/L (98-107); Estimated Glomerular Filt Rate > 60; Glucose 101 mg/dL (65-110); Potassium 4.3 mmol/L (3.4-5.0); Sodium 138 mmol/L (137-145)
--- OUTSIDE RECORDS SUMMARY | 2024-12-02 16:46 | XMS_ITS | Encounter Summary ---
Author Organization [facility] DIALLO Hayes [facility] Address [address] [place] [address] Care Team Providers Care Show Host Name Role Phone Unavailable Primary Care Provider Unavailabl e Reason for Visit * Reason Comments Establish Care Encounter Details Date Type Department Care Team (Late st Contact Info) Description 12/02/2024 1:30 PM CDT Office Visit [facility] Oncology and Hematology - James [address] [facility] [address] [place] [address] Wild Dey MD [address] [facility] [address] [place] [address] Leukocytosis, unspecified type (Primary Dx) Social History Tobacco Use Types Packs/Day Years Used Date Smoking Tobacco: Never Smokeless Tobacco: Never Tobacco Cessation:Counseling Given: Not Answered Alcohol Use Standard Drinks/Week Comments Never 0 (1 standard drink = 0.6 oz pur e alcohol) Comments Unknown Sex and Gender Information Value Date Recorded Sex Assigned at Not on file Legal Sex Female 2:48 PM QUILTING SUPERVISOR Gender Identity Not on file Sexual Orientation Not on file documented as of this encounter Last Filed Vital Signs Vital Sign Reading Time Taken Comments Blood Pressure 120/79 12/02/2024 1:32 PM CDT Pulse 98 12/02/2024 1:32 PM CDT Temperature 36.3 C (97.4 F) 12/02/2024 1:32 PM CDT Respiratory Rate 16 12/02/2024 1:32 PM CDT Oxygen Saturation 98% 12/02/2024 1:32 PM CDT Inhaled Oxygen Concentration - - Weight 59 kg (130 lb) 12/02/2024 1:32 PM CDT Height 167.6 cm (5' 6 ) 12/02/2024 1:32 PM CDT Body Mass Index 20.98 12/02/2024 1:32 PM CDT documented in this encounter Progress Notes * Wild Dey MD - 12/02/2024 2:26 PM CDT Hematology-oncology consult Note Requesting Physician Narendra James MD Primary Care Physician No primary care provider on file. Problem list There is no problem list on file for this patient. Previous TREATMENT ? Measurable Disease ? Reason for Visit Lanette Dowling is a 54 y.o. female who was referred for consultation for leukocytosis and hyperhomocysteinemia. History of present illness This is a 54-year-old female with history of shingles started 3 years ago after receivingshingle vaccination. Currently she has been taking steroids and Valtrex off-and-on on 3-4 times a year for shingle related symptoms. She just finished steroid about a week ago. She also has a historyof GERD and takes omeprazole. Patient 2 daughters were diagnosed with MTHFR mutation and she got tested and came back positive for heterozygous state for MTHFR mutation. Her homocystine was found to be elevated at 12. She denies any previous history of thromboembolic events including stroke and heart attack. Denies any other new complaints. Past Medical History No past medical history on file. Recurrent shingles GERD MTHFR heterozygous state Surgical History Past Surgical History: Procedure Laterality Date HX SECTION 1991 HX TONSIL AND ADENOIDECTOMY 1977 Medications Current Outpatient Medications Medication Sig Dispense Refill omeprazole (PriLOSEC) 20 mg Capsule, Delayed Release(E.C.) Take 20 mg by mouth daily. methylPREDNISolone (MEDROL DOSPACK) 4 mg Tablets, Dose Pack Take 4 mg by mouth see administration instructions. folic acid (FOLVITE) 1 mg tablet Take 1 Tablet (1 mg) by mouth daily. 90 Tablet 2 valACYclovir (VALTREX) 1 gram tablet Take 1,000 mg by mouth every 8 hours. No current facility-administered medications for this visit. Allergies Allergies Allergen Reactions [place] Anaphylaxis Penicillins Unknown From childhood Immunizations: There is no immunization history on file for this patient. Family History Family History Problem Relation Name Age of Onset No Known Problems Father Colon Cancer Mother No Known Problems Child No Known Problems Child No Known Problems Child Social History Social History Tobacco Use Smoking status: Never Smokeless tobacco: Never Substance Use Topics Alcohol use: Never Review of Systems Constitutional: Patient did not mention fever; no night sweats; no anorexia; no weight loss; no fatique NEENT: Patient did not mention headache; no change in vision; no change in hearing; no sore throat;no dysphagia Respiratory: Patient did not mention shortness of breath; no pleuritic chest pain; no cough; no hemoptysis Cardiac: Patient did not mention cardiac-like chest pain; no palpitations; no orthopnea; no PND; noDOE Breasts: Patient did not mention tenderness; no masses GI: Patient did not mention abdominal pain; no nausea; no vomiting; no diarrhea; no hematochezia; no melena : Patient did not mention dysuria; no frequency; no hesitancy; no hematuria CLERK TYPIST: Musculosketetal: Patient did not mention bone pain; no arthralgia; no joint swelling; no myalgia; Skin: Patient did not mention pruritis; no rash; no petechiae; no ecchymoses Endocrine: Patient did not mention polydipsia; no polyuria; no unusual weight gain Neuro: Patient did not mention headache; no change in vision; no sensory changes; no muscle weakness; no confusion; no seizures Psych: Patient did not mention anxiety; no depression; Physical Exam Vitals: As per nursing note Constitutional: Well developed, well nourished, no acute distress, non-toxic appearance Teeth and gum. No signs of infection or swelling. Eyes: PERRL, conjunctiva normal HEENT: Atraumatic, external ears normal, nose normal, oropharynx moist, no pharyngeal exudates. no sinus tenderness Neck- normal range of motion, no tenderness, supple Respiratory: No respiratory distress, normal breath sounds, no rales, no wheezing Cardiovascular: Normal rate, normal rhythm, no murmurs, no gallops, no rubs GI: Soft, nondistended, normal bowel sounds, nontender, no splenomegaly, no hepatomegaly, no mass, no rebound, no guarding : No costovertebral angle tenderness Musculoskeletal: No edema, no tenderness, no deformities. Back- no tenderness Integument: Well hydrated, no rash, Digits and nails inspection normal Lymphatic: No lymphadenopathy noted Neurologic: Alert & oriented x 3, CN 2-12 normal, normal motor function, normal sensory function, no focal deficits noted Psychiatric: Speech and behavior appropriate ? labs No results found for this or any previous visit (from the past 24 hours). Labs from August 2024 showed WBC 13.8 hemoglobin 14.5 platelet 386,000 neutrophils 56% lymphocytes 36% MTHFR heterozygous state with homocystine level of 12 Pathology ? Imaging & Other Studies Performance Status? Assessment / Plan: ? Hypercoagulable state with MTHFR heterozygous state with elevated homocystine level. Patient got tested as 2 of her daughter were tested positive for MTHFR mutation as they were having difficulty getting . She denies any previous history of thromboembolic events. I reviewed the significanceof MTHFR mutation and hyperhomocysteinemia in detail. I will check vitamin B12 and folic acid level. She is taking vitamin B12 1000 mcg twice a day. I will reduce it to 1000 mcg once a day. I will also add folic acid 1 mg daily. I will discuss those labs with patient in 2 weeks. Leukocytosis. This is likely reactive secondary to shingles and steroid use. I will check C-reactive protein, sedimentation rate and flow cytometric analysis for leukemia. There is no evidence of lymphadenopathy on my examination. GERD. She will continue omeprazole. Recurrent shingles. She has been taking Valtrex and steroid on as-needed basis. She will follow-up with the neurologist. Thank you very much for allowing me to participate in Lanette Dowling's evaluation and management. Please feel free to contact if I can be of any further assistance in your patient???s care requiring hematology or oncology evaluation. Sincerely, ? ? Wild Dey M.D. cell TOBACCO COUNSELING She is not a tobacco/nicotine user. Wild Dey MD ,12/02/2024 2:26 PM ? Total time spent 60 minutes, two third of the total time spent counseling patient [id number]. CC:?Narendra James MD documented in this encounter Plan of Treatment Upcoming Encounters Date Type Department Care Team (Late st Contact Info) Description 12/17/2024 4:00 PM CDT Telephone Check Up [facility] Oncology and Hematology - James [facility] [address] [place] [address] Wild Dey MD [address] [facility] [address] [place] [address] Scheduled Orders Name Type Priority Associated Diagnoses Orde r Schedule CBC WITH DIFFERENTIAL Lab Stat Leukocytosis, unspecified type Expected: 12/02/2024, Expires: 12/02/2025 COMPREHENSIVE METABOLIC PANEL Lab Stat Leukocytosis, unspecified type Expected: 12/02/2024, Expires: 12/02/2025 C-REACTIVE PROTEIN Lab Routine Leukocytosis, unspecified type Expected: 12/02/2024, Expires: 12/02/2025 FLOW CYTOMETRY PANEL Lab Routine Leukocytosis, unspecified type Expected: 12/02/2024, Expires: 12/02/2025 SEDIMENTATION RATE Lab Routine Leukocytosis, unspecified type Expected: 12/02/2024, Expires: 12/02/2025 HOMOCYSTEINE Lab Routine Leukocytosis, unspecified type Expected: 12/02/2024, Expires: 12/02/2025 VITAMIN B12 AND FOLATE Lab Routine Leukocytosis, unspecified type Expected: 12/02/2024, Expires: 12/02/2025 documented as of this encounter Visit Diagnoses Diagnosis Leukocytosis, unspecified type- Primary documented in this encounter
--- OUTSIDE RECORDS SUMMARY | 2024-12-02 16:46 | XMS_ITS | Clinical Summary ---
Author Organization [facility] Debbie espinoza [facility] Address [address] [place] [address] [place] [address] Care Team Providers Care Packaging Materials Inspector Name Role Phone Unavailable Primary Care Provider Unavailabl e Allergies Active Allergy Reactions Criticality Noted Date Comments Penicillins Unknown 11/28/2021 From childhood [place] Anaphylaxis High 12/02/2024 Medications valACYclovir (VALTREX) 1 gram tablet Take 1,000 mg by mouth every 8 hours. Active omeprazole (PriLOSEC) 20 mg Capsule, Delayed Release(E.C.) Take 20 mg by mouth daily. 5 Active methylPREDNISo lone (MEDROL DOSPACK) 4 mg Tablets, Dose Pack Take 4 mg by mouth see administration instructions. 5 Active folic acid (FOLVITE) 1 mg tablet Take 1 Tablet (1 mg) by mouth daily. 90 Tablet 2 5 Active Active Problems No known active problems Encounters Date Type Department Care Team Description 12/02/2024 1:30 PM CDT Office Visit [facility] Oncology and Hematology - James [address] [facility] [address] [place] [place] [address] Wild Dey MD Leukocytosis, unspecified type (Primary Dx) from Last 3 Months Family History Medical History Relation Name Comments No Known Problems Child 1 No Known Problems Child 2 No Known Problems Child 3 No Known Problems Father Colon Cancer Mother Relation Name Status Comments Child 1 Alive Child 2 Alive Child 3 Alive Father Alive Mother Alive Social History Tobacco Use Types Packs/Day Years Used Date Smoking Tobacco: Never Smokeless Tobacco: Never Tobacco Cessation:Counseling Given: Not Answered Alcohol Use Standard Drinks/Week Comments Never 0 (1 standard drink = 0.6 oz pur e alcohol) Comments Unknown Sex and Gender Information Value Date Recorded Sex Assigned at Not on file Legal Sex Female 2:48 PM DIRECTOR LEARNING SERVICES Gender Identity Not on file Sexual Orientation [...] Mass Index 20.98 12/02/2024 1:32 PM CDT Plan of Treatment Upcoming Encounters Date Type Department Care Team (Late st Contact Info) Description 12/17/2024 4:00 PM CDT Telephone Check Up [facility] Oncology and Hematology [facility] [address] [facility] [address] [place] [address] Wild Dey MD [address] [facility] [address] [place] [address] Health Maintenance Due Date Last Done Comments DTAP/TDAP/TD VACCINES (1 - Tdap) 1989 HEPATITIS B VACCINES (1 of 3 - 19+ 3-dose series) 04/1989 Preventative Visit-Managed Medicaid 1989 PAP SMEAR 1991 CERVICAL CANCER SCREENING 2000 HPV/Cotest 2000 PAP SMEAR 2000 BREAST CANCER SCREENING 2010 COLORECTAL SCREENING 2015 Colorectal Cancer Screening 2015 FIT-DNA Q 3 years 2015 FIT/FOBT Q 1 year 2015 Flex Sig/CT Colonography Q 5 years 2015 ZOSTER VACCINE (1 of 2) 2020 INFLUENZA VACCINE (#1) 2024 Insurance [place]ICAID [place]
--- OUTSIDE RECORDS SUMMARY | 2024-12-02 16:46 | XMS_ITS | Clinical Summary ---
Author Organization [facility] Address [address] [place] [address] Care Team Providers Care Medical Assistant Internal Medicine Name Role Phone Unknown, Provider Primary Care Provider Unavaila ble Source Comments [facility],non-owned Affiliates and Associated Physician Practices is amultiple site organization consisting of ambulatory clinics and hospital sitesin [place], [place], [place] and [place]. This disclosure is being madepursuant to the Care Everywhere program and may not contain all information available regarding this patient. Last updated 18.[facility] Allergies Active Allergy Reactions Criticality Noted Date Comments Penicillins Unknown 11/28/2021 From childhood Penicillium [place] Anaphylaxis,Shortnes s of Breath,Swelling High 05/26/2024 [place] Swelling 11/28/2021 Medications * Be aware that [...] times daily 180 tablet 4 10/08/2024 Active methylPREDNISolone (Medrol Dosepak) 4 MG tabletIndications:Tr igeminal neuralgia,Chronic facial pain Take 1 (one) tablet by mouth as directed Take as directed by mouth per package instructions. 21 tablet 11/24/2024 Active omeprazole (PriLOSEC) 20 MG capsuleIndications:T rigeminal neuralgia,Chronic facial pain Take 1 (one) capsule by mouth once daily 30 capsule 11/24/2024 Active Active Problems No known active problems Encounters Date Type Department Care Team Description 11/24/2024 Telephone [facility] - Neurology [address] [place] [phone] Joseph Correa APRN-CNP Medication Clarification (prednisone) 11/24/2024 Refill [facility] - Neurology [address] [place] [phone] Joseph Correa APRN-CNP Refill Request 11/24/2024 Orders Only [facility] - Neurology [address] [place] [phone] Joseph Correa APRN-CNP Trigeminal neuralgia ; Chronic facial pain 11/02/2024 4:01 PM TRAFFIC SIGNAL SUPERVISOR MAINTENANCE - 11/02/2024 11:59 PM [facility] Hospital Encounter [facility] MRI [address] [place] [address] Joseph Correa APRN-CNP Discharge Disposition: Home or Self Care 11/02/2024 Travel 10/08/2024 9:00 AM TRAFFIC SIGNAL SUPERVISOR MAINTENANCE Office Visit [facility] - Neurology [address] [place] [phone] Joseph Correa APRN-CNP Trigeminal neuralgia (Primary Dx); Chronic facial pain; Vertigo; Postural imbalance; Other complicated headache syndrome; Pre-op evaluation 10/08/2024 Travel 09/11/2024 2:15 PM TRAFFIC SIGNAL SUPERVISOR MAINTENANCE Office Visit [facility] - Otolaryngology [address] [place] [phone] Jarred Givens MD Chronic facial pain (Primary [...] Comments Blood Pressure 129/77 10/08/2024 8:46 AM TRAFFIC SIGNAL SUPERVISOR MAINTENANCE Pulse 96 10/08/2024 8:46 AM TRAFFIC SIGNAL SUPERVISOR MAINTENANCE Temperature - - Respiratory Rate - - Oxygen Saturation 97% 09/11/2024 3:07 PM TRAFFIC SIGNAL SUPERVISOR MAINTENANCE Inhaled Oxygen Concentration - - Weight 62.1 kg (137 lb) 10/08/2024 8:46 AM TRAFFIC SIGNAL SUPERVISOR MAINTENANCE Height 167.6 cm (5' 6 ) 09/11/2024 3:07 PM TRAFFIC SIGNAL SUPERVISOR MAINTENANCE Body Mass Index 22.11 09/11/2024 3:07 PM TRAFFIC SIGNAL SUPERVISOR MAINTENANCE Plan of Treatment Upcoming Encounters Date Type Department Care Team (Late st Contact Info) Description 01/05/2025 2:30 PM CDT Office Visit [facility] - Neurology [facility] [facility], [place] [address] Joseph Correa APRN-VINEYARD SUPERVISOR [address] [place] [address] [place] [phone] Health Maintenance Due Date Last Done Comments [...] to complete this topic MENINGOCOCCAL (Group B) VACC INE SHARED DECISION-MAKING Aged Out No longer eligibl e based on patient's age to complete this topic MENINGOCOCCAL GROUPS A/C/Y/W VACCINE Aged Out No longer eligible b ased on patient's age to complete this topic Procedures Procedure Name Priority Date/Time Associated Diagnosis Comments MRI BRAIN WWO CONTRAST Routine 11/02/2024 5:36 PM TRAFFIC SIGNAL SUPERVISOR MAINTENANCE Chronic facial pain Trigeminal neuralgia Vertigo Postural imbalance Other complicated headache syndrome Pre-op evaluation from Last 3 Months Results * MRI Brain Wwo Contrast (11/02/2024 5:36 PM TRAFFIC SIGNAL SUPERVISOR MAINTENANCE) Anatomical Region Laterality Modality Head Magnetic Resonan ce 11/02/2024 9:15 PM TRAFFIC SIGNAL SUPERVISOR MAINTENANCE Impressions 11/04/2024 9:52 AM TRAFFIC SIGNAL SUPERVISOR MAINTENANCE IMPRESSION: 1.There is a small vessel coursing [...] 11/04/2024 9:52 AM Narrative 11/04/2024 9:52 AM TRAFFIC SIGNAL SUPERVISOR MAINTENANCE PROCEDURE: MRI BRAIN WWO CONTRAST, DATE/TIME OF EXAM: 11/02/2024 5:38 PM, LOCATION [facility] INDICATION: R51.9: Chronic facial pain G89.29: Chronic [...] CONTRAST, DATE/TIME OF EXAM: 11/02/2024 5:38PM, LOCATION [facility] INDICATION: R51.9: Chronic facial pain G89.29: Chronic [...] Daniel MD on 11/04/2024 9:52 AM Joseph [facility] MR ORDERABLES from Last 3 Months Care Teams Medical Assistant Internal Medicine Relationship Specialty Start Date End Date Unknown, Provider PCP - General 10/28/24
[2024-12-02 16:49] LABS: Erythrocyte Sedimentation Rate 11 mm/hr (0-20)
[2024-12-02 17:35] LABS: Folic Acid 16.5 ng/mL (2.76->20)
[2024-12-04 12:54] LABS: Homocysteine 7.4 umol/L (<10.4)
== END 2024-12-02 14:20 | disposition home or self-care (01) ==
LOC: ANHLAB 14:20
PROVIDERS: PCP Emergency Medicine; Visit Provider Internal Medicine Hematology & Oncology
DX: D72.829 Elevated white blood cell count, unspecified (principal)
CPT/HCPCS: 36415; 80053; 82607; 82746; 83090; 85025; 85652; 86140; 88184

== ENCOUNTER 2025-06-22 13:21 | Outpatient (CLI) | payer OTHER, SELFPAY ==
[2025-06-22 13:37] LABS: Hematocrit 40.7 % (37.0-47.0); Hemoglobin 13.5 g/dL (12.0-15.0); Immature Granulocyte Percent A 0.4 % (0-0.5); Lymphocytes Absolute Auto 3.80 K/mm3 (0.9-3.2); Mean Corpuscular HGB Conc 33.2 g/dl (32-36); Mean Corpuscular Hemoglobin 28.7 pg (26-34); Mean Corpuscular Volume 86.6 fl (80-100); Nucleated Red Blood Cells Absolute Auto 0.000 K/mm3 (0.0-0.012); Nucleated Red Blood Cells Perc 0.0 % (0.0-0.2); Platelet Count Result 304 k/mm3 (150-375); Red Blood Count 4.70 M/mm3 (4.2-5.4); White Blood Count 10.3 K/mm3 (4.5-10.0)
--- OUTSIDE RECORDS SUMMARY | 2025-06-22 14:35 | XMS_ITS | Clinical Summary ---
Author Organization [facility] a[facility]is [facility] Address [address] [place] [address] [place] [address] Care Team Providers Care Pest Control Applicator Name Role Phone Unavailable Primary Care Provider Unavailabl e Allergies Active Allergy Reactions Criticality Noted Date Comments Penicillins Unknown 11/28/2021 From childhood [place] Anaphylaxis High 12/02/2024 Medications valACYclovir (VALTREX) 1 [...] mg) by mouth daily. 90 Tablet 2 Active Active Problems No known active problems Encounters Date Type Department Care Team Description 05/26/2025 External Device Data [facility] ABSTRACTION Provider, Abstract 04/14/2025 External Device Data [facility] ABSTRACTION Provider, Abstract 03/25/2025 External Device Data [place] ABSTRACTION Provider, Abstract 03/25/2025 External Device Data [place] ABSTRACTION Provider, Abstract 03/25/2025 External Device Data [place] ABSTRACTION Provider, Abstract from Last 3 Months Family History Medical [...] on file Legal Sex Female 2:48 PM MEDICAL LEADER Gender Identity Not on file Sexual Orientation [...] 1:32 PM CDT Height 167.6 cm (5' 6) 12/02/2024 1:32 PM CDT Body Mass Index 20.98 12/02/2024 1:32 PM CDT Plan of Treatment Upcoming Encounters Date Type Department Care Team (Late st Contact Info) Description 06/23/2025 10:15 AM CDT Office Visit [facility] Oncology and Hematology [place] [address] [place] [address] [facility] [address] [place] [address] Wild Dey MD [address] [facility] [address] [place] [address] Health Maintenance Due Date Last Done Comments DTAP/TDAP/TD VACCINES (1 - Tdap) 1989 HEPATITIS B VACCINES (1 of 3 - 19+ 3-dose series) 04/1989 Preventative Visit-Managed Medicaid 1989 HPV/Cotest (21-29) 1991 CERVICAL CANCER SCREENING 2000 HPV/Cotest (30-65) 2000 PAP SMEAR 2000 BREAST CANCER SCREENING 2010 COLORECTAL SCREENING 2015 Colorectal Cancer Screening 2015 FIT-DNA Q 3 years 2015 FIT/FOBT Q 1 year 2015 Flex Sig/CT Colonography Q 5 years 2015 ZOSTER VACCINE (1 of 2) 2020 INFLUENZA VACCINE (#1) 2025 Insurance [place] [employer]
--- OUTSIDE RECORDS SUMMARY | 2025-06-22 14:35 | XMS_ITS | Encounter Summary ---
Author Organization [facility] Address [address] [place] [address] Care Team Providers Care Cement Mixer Driver Name Role Phone Narendra James MD Primary Care Provider [phone] Narendra James MD Unavailable Encounter Details Date Type Department Care Team (Late Contact Info) Description 12/19/2024 Ophth Exam [facility] - Ophthalmology [address] [place] [phone] Fernanda Soni MD [address] [place] [address] Social History Tobacco Use Types Packs/Day Years Used Date Smoking Tobacco: Never Assessed Comments Unknown Sex and Gender Information Value Date Recorded Sex Assigned at Female 12/23/2024 3:32 PM CDT Legal Sex Female 5:48 AM FITTINGS FINISHER Gender Identity Female 12/23/2024 3:32 PM CDT Sexual Orientation Straight 12/23/2024 3: 32 PM CDT documented as of this encounter Functional Status documented as of this encounter Plan of Treatment Upcoming Encounters Date Type Department Care Team (Late Contact Info) Description 11/05/2025 1:30 PM FITTINGS FINISHER Office Visit [facility] - Neurology [address] [place] [phone] Joseph Correa APRN-CNP [address] [place] [address] [place] [phone] documented as of this encounter Visit Diagnoses Not on filedocumented in this encounter Care Teams Cement Mixer Driver Relationship Specialty Start Date End Date Narendra James MD [address] [facility] [address] [place] [address] PCP - General Family Medicine 12/19/24 Narendra James MD [address] [address] Family Medicine 12/19/24 documented as of this encounter
--- OUTSIDE RECORDS SUMMARY | 2025-06-22 14:35 | XMS_ITS | Clinical Summary ---
Author Organization [facility] Address [facility] [place] [address] Care Team Providers Care Blender/Braze Applicator Name Role Phone None, Provider MD Primary [...] Not Answered Alcohol Use Standard Drinks/Week Comments Not Currently 0 (1 standard drink = 0.6 oz pur e alcohol) Comments Unknown Sex and Gender Information Value Date Recorded Sex Assigned at Not on file Legal Sex Female 1:40 AM CDT Gender Identity Not on file Sexual Orientation Not on file Last Filed Vital Signs Vital Sign Reading Time Taken Comments Blood Pressure 150/86 01/27/2025 9:15 AM CDT Pulse 75 01/27/2025 9:15 AM CDT Temperature 36.7 C (98.1 F) 01/27/2025 6:57 AM CDT Respiratory Rate 21 01/27/2025 9:15 AM CDT Oxygen Saturation 98% 01/27/2025 9:15 AM CDT Inhaled Oxygen Concentration - - Weight 61.2 kg (135 lb) 01/27/2025 6:57 AM CDT Height 167.6 cm (5' 6) 01/27/2025 6:57 AM CDT Body Mass Index 21.79 01/27/2025 6:57 AM CDT Plan of Treatment Health Maintenance Due Date Last Done Comments Cervical Cancer Screening Pa p Smear (Age 30 to 64) Every 3 Years 1970 Colorectal Cancer Screening Colonoscopy (10 Years) 1970 Annual Physical 1973 Hepatitis C 1988 DTaP, Tdap and Td Vaccines ( 1 - Tdap) 1989 Hepatitis B Vaccines (1 of 3 - 19+ 3-dose series) 1989 Pneumococcal Vaccine: 50+ Years (1 of 2 - PCV) 1989 Cervical Cancer Screening Pa p with HPV Testing (Age 30 to 64) Every 5 Years 2000 Cervical Cancer Screening wi th HPV 2000 Mammogram Screening 2010 Zoster Vaccines (1 of 2) 2020 COVID-19 Vaccine (3 - 2024-2 6 season) 2025 12/04/2020, 11/11/2020 Influenza Adult (#1) 2025 Meningococcal B Vaccine Aged Out No l onger eligible based on patient's age to complete this topic Meningococcal Vaccine Aged Out No kumar raul eligible based on patient's age to complete this topic RSV Immunizations Under 20 Months Aged Out No longer eligible b ased on patient's age to complete this topic Insurance Care Teams Blender/Braze Applicator Relationship Specialty Start Date End Date None, Provider, MD PCP - General UNKNOWN PHYSICIAN SPECIALTY 12/23/24
--- OUTSIDE RECORDS SUMMARY | 2025-06-22 14:35 | XMS_ITS | Encounter Summary ---
Author Organization [facility] Address [address] [facility] [place] [address] Care Team Providers Care Record Pressman Name Role Phone Narendra James MD Primary Care Provider [phone] Narendra James MD Primary Care Provider [phone] Narendra James MD Unavailable Encounter Details Date Type Department Care Team (Late st Contact Info) Description 12/17/2024 Telephone [facility] - Infectious Disease [address] [place] [address], [place] [id number] Luis Laws MD [address] [place] [address] [place] [address] Social History Tobacco Use Types Packs/Day Years Used Date Smoking Tobacco: Every Day Cigarettes Smokeless Tobacco: Never Alcohol Use Standard Drinks/Week Comments Never 0 (1 standard drink = 0.6 oz pur e alcohol) Comments Unknown Sex and Gender Information Value Date Recorded Sex Assigned at Female 12/23/2024 3:32 PM CDT 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 Laws Reason for Call: Ms. Lanette Dowling has referral for ID under referral tab Diagnosis B02.9 (ICD-10-CM) - Shingles H57.10 (ICD-10-CM) - Pain in eye R51.9 (ICD-10-CM) - Headache Please review and get her schedule Patient Call Back Number: [phone] documented in this encounter Plan of Treatment Upcoming Encounters Date Type Department Care Team (Late st Contact Info) Description 11/05/2025 1:30 PM FILENET DEVELOPER Office Visit [facility] - Neurology [facility] [facility], [place] [address] Joseph Correa APRN-TELEVISION ANTENNA INSTALLER [address] [place] [address] [place] [address] documented as of this encounter Visit Diagnoses Not on filedocumented in this encounter Care Teams Record Pressman Relationship Specialty Start Date End Date Narendra James MD [address] [address] PCP - General Family Medicine 12/03/24 12/18/24 Narendra James MD [address] [place] [address] PCP - General Family Medicine 12/19/24 Narendra James MD [address] [address] Family Medicine 12/19/24 documented as of this encounter
--- OUTSIDE RECORDS SUMMARY | 2025-06-22 14:36 | XMS_ITS | Encounter Summary ---
Author Organization [facility] Address [address] [place] [address] Care Team Providers Care C Python Developer Name Role Phone Narendra James MD Primary Care Provider [phone] Narendra James MD Primary Care Provider [phone] Narendra James MD Unavailable Encounter Details Date Type Department Care Team (Late st Contact Info) Description 12/17/2024 Telephone [facility] - Neurology [address] [place] [address], [place] [address] Joseph Correa APRN-SALESPERSON [facility] [address] [place] [phone] Social History Tobacco Use Types Packs/Day Years Used Date Smoking Tobacco: Every Day Cigarettes Smokeless Tobacco: Never Alcohol Use Standard Drinks/Week Comments Never 0 (1 standard drink = 0.6 oz pur e alcohol) Comments Unknown Sex and Gender Information Value Date Recorded Sex Assigned at Female 12/23/2024 3:32 PM CDT 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 Patient Call Back Number: [phone] documented in this encounter Plan of Treatment Upcoming Encounters Date Type Department Care Team (Late st Contact Info) Description 11/05/2025 1:30 PM FUR CUTTING MACHINE OPERATOR Office Visit [facility] - Neurology [address] [facility], [place] [address] Joseph Correa, DATA MIGRATION LEAD-SALESPERSON [facility] [address] [place] [address] documented as of this encounter Visit Diagnoses Not on filedocumented in this encounter Care Teams C Python Developer Relationship Specialty Start Date End Date Narendra James MD [address] [address] PCP - General Family Medicine 12/03/24 12/18/24 Narendra James MD [address] [facility] [address] [place] [address] PCP - General Family Medicine 12/19/24 Narendra James MD [address] [facility] [address] [place] [address] Family Medicine 12/19/24 documented as of this encounter
--- OUTSIDE RECORDS SUMMARY | 2025-06-22 14:36 | XMS_ITS | Clinical Summary ---
Author Organization [facility] Address [address] [place] [address] Care Team Providers Care Inspector Casing Name Role Phone Narendra James MD Primary Care Provider [phone] Narendra James MD Unavailable Source Comments [facility],non-owned Affiliates and Associated Physician Practices is amultiple site organization consisting of ambulatory clinics and hospital sitesin [place], [place], [place] and [place]. This disclosure is being madepursuant to the Care Everywhere program and may not contain all information available regarding this patient. Last updated 18.[facility] Allergies Active Allergy Reactions Criticality Noted Date Comments Penicillins Anaphylaxis High 12/19/2024 Penicillins Unknown 11/28/2021 From childhood Penicillium Notatum Anaphylaxis,Shortnes s of Breath,Swelling High 05/26/2024 [place] Swelling 11/28/2021 [place] Anaphylaxis High 12/19/2024 Medications * Be aware that medications may not be up to date on this document. Alwaysverify current medications with the patient. doxycycline hyclate (Vibramycin) 100 MG capsule Take 1 (one) capsule by mouth once daily 4 Active indomethacin (Indocin) 25 MG capsuleIndicati ons:Trigeminal neuralgia Take 1 (one) capsule by mouth 2 times daily 180 capsule 4 5 Active omeprazole (PriLOSEC) 20 MG capsuleIndicati ons:Trigeminal neuralgia,Chron ic facial pain Take 1 (one) capsule by mouth once daily 90 capsule 3 5 Active medroxyPROGESTE Lance (Depo-Provera) 150 MG/ML prefilled syringe ADMINISTER 1 ML IN THE MUSCLE EVERY 3 MONTHS Active Active Problems No known active problems Encounters Date Type Department Care Team Description 05/07/2025 1:30 PM CDT Office Visit [facility] - Neurology [address] [place] [address], [facility] [place] [address] SunnyTeodoroanita, CONSULTING PROJECT DIRECTOR-TRAIN EXAMINER Trigeminal neuralgia (Primary Dx) 05/07/2025 Travel from Last 3 Months Immunizations Immunization Administration Dates Next Due Covid Pfizer primary monoval ent 12+ yr 0.3mL Purple cap 12/04/2020,11/11/2020 HEP A VACCINE, ADULT 12/01/2013 Social History Tobacco Use Types Packs/Day Years Used Date Smoking Tobacco: Every Day Cigarettes Smokeless Tobacco: Never Tobacco Cessation:Ready to Q uit: Not Asked; Counseling Given: Not Answered Alcohol Use Standard Drinks/Week Comments Never 0 (1 standard drink = 0.6 oz pur e alcohol) PHQ-2 Answer Date Recorded Patient Health Questionnaire-2 Score 3 01/26/2025 Comments No Sex and Gender Information Value Date Recorded Sex Assigned at Female 12/23/2024 3:32 PM CDT 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 Gender Identity Female 12/23/2024 3:32 PM CDT Sexual Orientation Straight 12/23/2024 3: 32 PM CDT Last Filed Vital Signs Vital Sign Reading Time Taken Comments Blood Pressure 135/83 05/07/2025 1:35 PM CDT Pulse 85 05/07/2025 1:35 PM CDT Temperature 36.5 C (97.7 F) 01/26/2025 10:51 AM CDT Respiratory Rate 16 12/19/2024 11:15 PM CDT Oxygen Saturation 98% 01/26/2025 10:51 AM CDT Inhaled Oxygen Concentration - - Weight 57.2 kg (126 lb 3.2 oz) 05/07/2025 1:35 P M CDT Height 167.6 cm (5' 6) 05/07/2025 1:35 PM CDT Body Mass Index 20.37 05/07/2025 1:35 PM CDT Plan of Treatment Upcoming Encounters Date Type Department Care Team (Late st Contact Info) Description 11/05/2025 1:30 PM PACKAGE HANDLER Office Visit [facility] - Neurology [address] [facility], [place] [phone] Sunny Joseph, HYACINTH-TRAIN EXAMINER [facility] [place] [address] Health Maintenance Due Date Last Done Comments COLOGUARD (AGES 45-75) - COL ON CA SCREENING 1970 COLON MONITORING 1970 COLONOSCOPY - COLON CA SCREENING 1970 CT COLONOGRAPHY - COLON CA SCREENING 1970 Colorectal Cancer Screening 1970 FIT - COLON CA SCREENING 1970 FLEX SIG - COLON CA SCREENING 1970 LIPID TESTING 1970 MAMMOGRAM 1970 DTAP/TDAP/TD VACCINES (1 - Tdap) 1989 HEPATITIS B VACCINE (1 of 3 - 19+ 3-dose series) 1989 PNEUMOCOCCAL VACCINE 50+ (1 of 2 - PCV) 1989 PAP SMEAR 1991 ZOSTER VACCINE (1 of 2) 2020 COVID-19 VACCINE (3 - 2024-2 6 season) 2025 12/04/2020, 11/11/2020 INFLUENZA VACCINE (#1) 2025 DEPRESSION SCREENING Completed 01/23/2025 HEPATITIS C SCREENING Completed 01/26/2025 HIV SCREENING Completed 01/26/2025 HIB VACCINE Aged Out No longer eligi ble based on patient's age to complete this topic HPV VACCINE Aged Out No longer eligi ble based on patient's age to complete this topic MENINGOCOCCAL (Group B) VACCINE SHARED DECISION-MAKING Aged Out No longer eligible based on patient's age to complete this topic MENINGOCOCCAL GROUPS A/C/Y/W VACCINE Aged Out No longer eligible b ased on patient's age to complete this topic Procedures Procedure Name Priority Date/Time Associated Diagnosis Comments HEPATITIS B + C PANEL Routine 01/26/2025 4:21 PM CDT Need for hepatitis B screening test Need for hepatitis C screening test HIV-1 HIV-2 ANTIBODY + HIV P24 AG PANEL Routine 01/26/2025 4:21 PM CDT Screening for HIV (human immunodeficiency virus) from Last 3 Months or Most Recently Relevant to Health Maintenance Results * HEPATITIS B + C PANEL (01/26/2025 4:21 PM CDT) Hepatitis B Virus Surface Antigen Negative Negative [facility] INSURANCE BILL Hepatitis B Virus Surface Antibody Non Reactive [facility] INSURANCE BILL Comment: Non Reactive: Not immune to HBV infection. Equivocal: Unable to determine if anti-HBs is present at levels consistent with immunity. Reactive: Anti-HBs concentration detected at greater than 10 mIU/mL. Individual is considered to be immune to infection with HBV. Hepatitis B Core Virus Antibody Total Negative Negative [facility] INSURANCE BILL Interpretation Comment [facility] INSURANCE BILL Comment: HBV Serology Interpretation Chart Interpretation HBsAg anti-HBs anti-HBc anti-HBc IgM [place] - Analyte present: + Analyte absent: - Test not indicated: TNI Susceptible (never infected and no evidence - - - TNI of vaccination) Immune due to natural resolved infection - + + TNI Immune due to vaccination - + - TNI Acute Infection + - + + Chronic infection + - + - Interpretation unclear* - - + +/- *Multiple possibilities: resolved infection (most common); false- positive anti-HBc (susceptible); low-level chronic infection; resolving acute infection. Hepatitis C Antibody Non Reactive Non Reactive [facility] INSURANCE BILL Comment: Performed at: - [facility] [id number] Hardness Inspector: Felipe De La Rosa PhD, Phone: [phone] Interpretation Comment [facility] INSURANCE BILL Comment: Not infected with HCV unless early or acute infection is suspected (which may be delayed in an immunocompromised individual), or other evidence exists to indicate HCV infection. Blood BLOOD SPECIMEN / Unknown 01/26/2025 4:21 PM CDT 01/26/2025 Narrative [facility] INSURANCE BILL - 01/28/2025 5:08 AM CDT Performed at: [address] [id number] Hardness Inspector: Felipe De La Rosa PhD, Phone: [phone] us Shalini Boone MD LAB - SEROLOGY ORDERABLES Final Result Performing Organization Address [facility] de Phone Number [facility] INSURANCE BILL [address] [place] [address] * HIV-1 HIV-2 ANTIBODY + HIV P24 AG PANEL (01/26/2025 4:21 PM CDT) [facility] HIV Screen 4th Generation w Reflex Non Reactive Non Reactive [facility] INSURANCE BILL Comment: HIV-1/HIV-2 antibodies and HIV-1 p24 antigen were NOT detected. There is no laboratory evidence of HIV infection. HIV Negative Blood BLOOD SPECIMEN / Unknown 01/26/2025 4:21 PM CDT 01/26/2025 Narrative [facility] INSURANCE BILL - 01/28/2025 5:08 AM CDT Performed at: [address] [id number] Hardness Inspector: Felipe De La Rosa PhD, Phone: [phone] us Shalini Boone MD LAB - CHEMISTRY ORDERABLES Final Result Performing Organization Address [facility] de Phone Number [facility] INSURANCE BILL [address] [place] [address] from Last 3 Months or Most Recently Relevant to Health Maintenance Insurance Care Teams Inspector Casing Relationship Specialty Start Date End Date Narendra James MD [address] [place] [address] PCP - General Family Medicine 12/19/24 Narendra James MD [address] [place] [address] Family Medicine 12/19/24
[2025-06-22 17:28] LABS: Vitamin B12 282.0 pg/mL (239-931)
== END 2025-06-22 13:22 | disposition home or self-care (01) ==
LOC: ANHLAB 13:21
PROVIDERS: PCP Emergency Medicine; Visit Provider Internal Medicine Hematology & Oncology
DX: D72.829 Elevated white blood cell count, unspecified (principal)
CPT/HCPCS: 36415; 82607; 82746; 85025